=== PATIENT | male | born 1955 | race Hispanic/Latino ===

== ENCOUNTER 2020-04-18 11:04 | Outpatient (CLI) | payer OTHER ==
--- NOTE | 2020-04-18 11:43 | RAD ---
THREE VIEWS RIGHT SHOULDER: DATE: 04/18/2020. PROVIDED CLINICAL HISTORY: Pain status post injury. FINDINGS: No evidence for a fracture or other acute osseous abnormality. Glenohumeral relationship appears nor mal. Visualized right lung field appears clear. Subacromial space appears preserved. IMPRESSION: No evidence for an acute osseous abnormality. If there is persistent clinical concern, conservative management and followup imaging are advised. POS: [facility]
== END 2020-04-18 11:05 | disposition home or self-care (01) ==
LOC: SCSRAD 11:04
PROVIDERS: ATTEND Internal Medicine
DX: S46.811A Strain of other muscles, fascia and tendons at shoulder and upper arm level, right arm, initial encounter (principal)

== ENCOUNTER 2023-12-13 10:48 | Outpatient (CLI) | payer OTHER | END 2023-12-13 10:49 | disposition home or self-care (01) | LOC: BICRAD 10:48 | DX: S29.9XXA Unspecified injury of thorax, initial encounter (principal); S22.32XA Fracture of one rib, left side, initial encounter for closed fracture | CPT/HCPCS: 71046 ==